=== PATIENT | male | born 1950 | race Caucasian/White ===

== ENCOUNTER 2020-11-26 06:41 | Day surgery (SDC) | payer MEDICARE, BC ==
[~2020-11-26 06:41] MED LIST: Lactated Ringers 1,000 ML IV SCH; Lidocaine 1%/Sod Bicarbonate in NS 8.4% 1 ML Syringe IDERM PRN; Sodium Chloride 0.9% 10 ML Syringe FLUSH PRN
--- NOTE | 2020-11-26 07:14 | PCM.PREANE ---
Preanesthetic Assessment - Anesthesia/Transfusion/Family Hx Anesthesia History: Prior Anesthesia Without Reaction Family History of Anesthesia Reaction: No Transfusion History: No Prior Transfusion(s) - Review of Systems General: Other (covid vax times 2) Pulmonary: No Symptoms Cardiovascular: No Symptoms, Other (greater than 4 mets) Gastrointestinal: Other (denies heartburn ) Neurological: No Symptoms Other: Reports: Thyroid Problems - Physical Assessment NPO Status Date: 11/26/20 NPO Status Time: 04:00 Weight: 69.9 kg ASA Class: 2 Mental Status: Alert & Oriented x3 Airway Class: Mallampati = 2 Dentition: Reports: Normal Dentition Thyro-Mental Finger Breadths: 3 Mouth Opening Finger Breadths: 3 ROM/Head Extension: Full Lungs: Clear to Auscultation, Normal Respiratory Effort Cardiovascular: Regular Rate, Regular Rhythm - Allergies Allergies/Adverse Reactions: Allergies Allergy/AdvReac Type Severity Reaction Status Date / Time Fish Containing Products Allergy Cannot Verified 11/22/20 12:42 Remember metoprolol Allergy Cannot Verified 11/22/20 12:42 Remember nut - unspecified Allergy Cannot Verified 11/22/20 12:42 Remember - Blood Blood Available: No Product(s) Available: None - Anesthesia Plan Pre-Op Medication Ordered: None - Acknowledgements Anesthesia Type Planned: MAC Pt an Appropriate Candidate for the Planned Anesthesia: Yes Alternatives and Risks of Anesthesia Discussed w Pt/Guardian: Yes Pt/Guardian Understands and Agrees with Anesthesia Plan: Yes PreAnesthesia Questionnaire HEENT History: Reports: None Cardiovascular History: Reports: None Respiratory History: Reports: None Genitourinary History: Reports: None RELATIONS SPECIALIST History: Reports: None Musculoskeletal History: Reports: Other (See Below) Other Musculoskeletal History: hip pain Neurological History: Reports: None Psychiatric History: Reports: None Endocrine/Metabolic History: Reports: Hypothyroidism Other Hematologic History: erythrocytopenia Immunologic History: Reports: None Oncologic (Cancer) History: Reports: Colon Dermatologic History: Reports: Other (See Below) Other Dermatologic History: actinic keratosis - Past Surgical History Head Surgeries/Procedures: Reports: None HEENT Surgical History: Reports: None Cardiovascular Surgical History: Reports: None Respiratory Surgical History: Reports: None GI Surgical History: Reports: Colon, Colonoscopy Female Surgical History: Reports: None Male Surgical History: Reports: None Endocrine Surgical History: Reports: None Neurological Surgical History: Reports: None Musculoskeletal Surgical History: Reports: None Oncologic Surgical History: Reports: None Dermatological Surgical History: Reports: None - SUBSTANCE USE Tobacco Use Status *Q: Never Tobacco User Recreational Drug Use History: No - HOME MEDS Home Medications: Home Meds Levothyroxine [Synthroid] 50 mcg PO DAILY 11/22/20 [History] Multivit-Min/Folic/Vit K/Lycop [Men's Daily Formula Tablet] 1 tab PO DAILY 11/22/20 [History] - CURRENT (IN HOUSE) MEDS Current Meds: Current Medications Lactated Ringer's (Ringers, Lactated) 1,000 mls @ 125 mls/hr IV ASDIRECTED NANCY Stop: 11/26/20 23:00 Lidocaine/Sodium Bicarbonate (Lidocaine 1%/Sod Bicarbonate In Ns 8.4% 1 Ml Syringe) 0.25 ml IDERM ONETIME PRN PRN Reason: Prior to IV Start Stop: 11/26/20 18:00 Sodium Chloride (Sodium Chloride 0.9% 10 Ml Syringe) 10 ml FLUSH ASDIRECTED PRN PRN Reason: Keep Vein Open Stop: 11/26/20 18:00
[2020-11-26] MEDS ORDERED: Propofol 200 MG/20 ML SDV ONE ×2 (07:23→07:24)
[2020-11-26] MEDS ORDERED: Lidocaine 1% 4 ML ONE (07:24)
--- NOTE | 2020-11-26 08:25 | PCM.PRNOTE ---
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 Stapled [id number] ileocolic anastomosis visualized and small bowel intubated. Hypopigmented scar-like lesion in proximal rectum. Small hyperplastic appearing polyp in low rectum. Internal hemorrhoids with associated hypertrophied anal papillae. Detailed Report: Patient was taken to the endoscopy suite and placed in left lateral decubitus position. Timeout was performed and monitored anesthesia care was initiated. Visual inspection of the anus revealed no abnormality. Digital rectal exam was unremarkable. The colonoscope was inserted and advanced to the ileocolic anastomosis with ease. Prep was excellent. The small bowel was intubated and mucosa appeared normal. The scope was slowly withdrawn and mucosal surfaces carefully inspected. There was moderate diverticular disease of the distal colon. Within the rectum, a small flat hypopigmented lesion that looked like a mucosal scar was identified. This was biopsied with cold forceps. On retroflexion within the rectum, internal hemorrhoids were appreciated with 2 associated hypertrophied anal papilla. Just proximal to this, a small hyperplastic appearing polyp was identified. This was biopsied with cold forceps. Air was suctioned from the colon and rectum prior to withdrawal of the scope. The patient tolerated the procedure well.
--- NOTE | 2020-11-26 08:28 | PCM48HPAN ---
Post Anesthesia Note - EVALUATION WITHIN 48HRS OF ANESTHETIC Vital Signs in Normal Range: Yes Patient Participated in Evaluation: Yes Respiratory Function Stable: Yes Airway Patent: Yes Cardiovascular Function Stable: Yes Hydration Status Stable: Yes Pain Control Satisfactory: Yes Nausea and Vomiting Control Satisfactory: Yes Mental Status Recovered: Yes
== END 2020-11-26 09:18 | disposition home or self-care (01) ==
LOC: JD.SDS 06:41
PROVIDERS: ATTEND Surgery
DX: Z12.11 Encounter for screening for malignant neoplasm of colon (principal); K62.1 Rectal polyp; K64.4 Residual hemorrhoidal skin tags; K64.8 Other hemorrhoids; E03.9 Hypothyroidism, unspecified; Z88.8 Allergy status to other drugs, medicaments and biological substances; Z79.890 Hormone replacement therapy; Z98.890 Other specified postprocedural states; Z87.891 Personal history of nicotine dependence; Z01.812 Encounter for preprocedural laboratory examination; Z20.822 Contact with and (suspected) exposure to COVID-19
CPT/HCPCS: 45380; 88305; J2704; J7120; U0002; 00812

== ENCOUNTER 2023-11-08 05:45 | Day surgery (SDC) | payer MEDICARE, BC ==
[~2023-11-08 05:45] MED LIST changes: -Lactated Ringers 1,000 ML IV SCH; -Lidocaine 1%/Sod Bicarbonate in NS 8.4% 1 ML Syringe IDERM PRN; +Sodium Chloride 0.9% 10 ML Syringe FLUSH SCH
[2023-11-08] MEDS: Lactated Ringers 1,000 ML IV SCH (06:00)
[2023-11-08] MEDS ORDERED: Propofol 200 MG/20 ML SDV ONE ×4 (06:16→08:09)
[2023-11-08] MEDS ORDERED: Lidocaine 1% 5 ML VIAL ONE (06:16)
[2023-11-08] MEDS ORDERED: fentaNYL 100 MCG/2 ML SDV ONE (06:17)
[2023-11-08] MEDS ORDERED: Midazolam 1 MG/ML 2 ML SDV ONE (06:17)
[2023-11-08] MEDS ORDERED: ceFAZolin 2 GM Vial ONE (06:22)
[2023-11-08 06:26] LABS: INR 1.01; PROTHROMBIN TIME 10.7 SECONDS (9.7-12.0)
[2023-11-08 06:27] LABS: PTT,PARTIAL THROMBOPLSTIN TIME 25.6 SECONDS (21.7-31.4)
[2023-11-08] MEDS: Acetaminophen 325 MG Tab PO SCH (06:28)
[2023-11-08] MEDS: oxyCODONE ER 10 MG TAB.ER PO SCH (06:28)
[2023-11-08] MEDS: Pregabalin 25 MG Cap PO SCH (06:28)
[2023-11-08] MEDS ORDERED: HYDROmorphone 0.5 MG/0.5 ML Syringe IVPUSH PRN (06:38)
[2023-11-08] MEDS ORDERED: Ondansetron 4 MG/2 ML SDV IVPUSH PRN (06:38)
[2023-11-08] MEDS ORDERED: fentaNYL 100 MCG/2 ML SDV IVPUSH PRN (06:38)
[2023-11-08] MEDS ORDERED: ePHEDrine 50 MG/ML SDV ONE (07:11)
[2023-11-08] MEDS ORDERED: Lactated Ringers 1,000 ML ONE ×2 (07:11→08:50)
[2023-11-08] MEDS ORDERED: Ondansetron 4 MG/2 ML SDV ONE (08:02)
[2023-11-08] MEDS ORDERED: Ketamine 200 MG/20 ML MDV ONE (08:14)
[2023-11-08] MEDS: Vancomycin 1 GM SDV ONE (08:32)
[2023-11-08] MEDS: Tranexamic Acid 1,000 MG/10 ML Vial ONE (08:32)
[2023-11-08] MEDS: Morphine 8 MG, EPINEPHrine 0.3 MG, Cefuroxime 750 MG, Ketorolac 30 MG, Sodium Chloride ... PRN (08:32)
[2023-11-08] MEDS ORDERED: Ketorolac 15 MG/ML SDV ONE (08:44)
== END 2023-11-08 12:25 | disposition home or self-care (01) ==
LOC: JD.SDS 05:45
PROVIDERS: ATTEND Orthopaedic Surgery
DX: M16.11 Unilateral primary osteoarthritis, right hip (principal); E03.9 Hypothyroidism, unspecified; Z79.890 Hormone replacement therapy; Z79.899 Other long term (current) drug therapy; Z91.013 Allergy to seafood; Z91.018 Allergy to other foods
CPT/HCPCS: 0055T; 27130; 36415; 73501; 85610; 85730; 86850; 86900; 86901; 97110; 97161; A9270; C1713; C1776; J0171; J0690; J0697; J1885; J2250; J2270; J2405; J2704; J3010; J3370; J7120; 01214; 99100; J3490